=== PATIENT | male | born 1995 | race Caucasian/White ===

== ENCOUNTER 2019-02-11 15:15 | Emergency (ER) | payer BC, OTHER ==
[~2019-02-11] VITALS: Ht 177.8 cm; Wt 90.9 kg
[2019-02-11 15:26] VITALS: TEMP 97.4
[2019-02-11 16:29] LABS: COLLECTION METHOD CLEAN CATCH
[2019-02-11 16:35] LABS: MUCOUS Present /lpf; PH 6 (5-8); SQUAMOUS EPITHELIAL 0-2 /hpf; URINE APPEARANCE Clear; URINE BACTERIA None Seen /hpf; URINE BILIRUBIN Negative (NEGATIVE); URINE BLOOD Negative (NEGATIVE); URINE COLOR Yellow; URINE GLUCOSE Negative (NEGATIVE); URINE KETONE Negative (NEGATIVE); URINE LEUKOCYTE ESTERASE Negative (NEGATIVE); URINE NITRATE Negative (NEGATIVE); URINE PROTEIN(semi-quant) Negative (NEGATIVE); URINE RBC 0-2 /hpf; URINE UROBILINOGEN Negative (NEGATIVE)
[2019-02-11] MEDS ORDERED: PHENERGAN 25 TA25 MG PO (16:47)
[2019-02-11 17:07] VITALS: BP 121/80; PULSE 79
== END 2019-02-11 17:05 | disposition home or self-care (01) ==
LOC: COL.ER 15:15
PROVIDERS: Emergency Medicine
DX: R11.2 Nausea with vomiting, unspecified (principal); R10.30 Lower abdominal pain, unspecified

== ENCOUNTER → 2019-02-11 | Outpatient (CLI) | payer BC, OTHER ==
[~2019-02-11] MED LIST: PHENERGAN 25 TA25 MG PO
[2019-02-11 12:30] LABS: BASO % 0.2 % (0.0-2.0); EOS # 0.2 (0.0-0.7); EOS % 4.6 % (0-4.0); GRAN # 2.5 (1.4-6.5); GRAN % 54.3 % (42.2-75.2); HEMATOCRIT 45.3 % (42.0-52.0); HEMOGLOBIN 15.3 g/dl (13.5-18.0); LYMPH # 1.3 (1.2-3.4); LYMPH % 28.4 % (20.0-51.0); MEAN CELL VOLUME 89 fl (80.0-100.0); MEAN CORPUSCULAR HEMOGLOBIN 30 pg (27.0-31.0); MEAN CORPUSCULAR HGB CONC 34 g/dl (33.0-37.0); MEAN PLATELET VOLUME 9.9 fl (7.4-10.4); MONO # 0.6 (0.1-0.6); MONO % 12.1 % (1.7-9.3); PLATELET COUNT 208 K/mm3 (130-400); RED BLOOD COUNT 5.09 M/mm3 (4.20-5.60); REDCELL DISTRIBUTION WIDTH-CV 12.9 % (11.5-14.5)
[2019-02-11 12:40] LABS: ALBUMIN 4.4 gm/dL (3.5-5.0); BILIRUBIN,TOTAL 0.5 mg/dL (0.0-1.0); CALCIUM 9.3 mg/dL (8.4-10.2); CREATININE, serum 0.91 (0.66-1.25); POTASSIUM 3.7 mmol/L (3.4-5.0); TOTAL PROTEIN 7.8 gm/dL (6.4-8.2)
== END ==
LOC: COL.LAB 12:05
PROVIDERS: Family Medicine
DX: R52 Pain, unspecified (principal)

== ENCOUNTER 2019-06-20 17:36 | Emergency (ER) | payer BC, OTHER ==
[~2019-06-20] VITALS: Ht 177.8 cm; Wt 100.0 kg
[2019-06-20 17:41] VITALS: BP 134/83; TEMP 99.7
[2019-06-20] MEDS ORDERED: OMNICEF 300MG300 MG PO (18:00)
[2019-06-20 18:22] VITALS: PULSE 84
== END 2019-06-20 18:18 | disposition home or self-care (01) ==
LOC: COL.ER 17:36
DX: M70.41 Prepatellar bursitis, right knee (principal); W22.8XXA Striking against or struck by other objects, initial encounter